=== PATIENT | male | born 1970 | race Caucasian/White ===

== ENCOUNTER 2018-07-25 14:59 | Inpatient (IN) | payer OTHER ==
[2018-07-25 15:24] LABS: ADD MAN DIFF? NO
[2018-07-25] MEDS ORDERED: ONDANSETRON 4 MG INJ (15:25)
[2018-07-25] MEDS: ONDANSETRON 4 MG INJ IV (15:26)
[2018-07-25] MEDS: SOD CHLORIDE 0.9% 1,000 ML IV (15:27)
[2018-07-25 15:30] LABS: BASOPHILS % 0.4 % (0.0-2.0); EOSINOPHILS # 0.1 10^3/ul (0.0-0.5); EOSINOPHILS % 0.7 % (0.0-7.0); HEMOGLOBIN 15.7 g/dl (14.0-18.0); LYMPHOCYTES # 1.8 10^3/ul (0.8-2.9); LYMPHOCYTES % 26.1 % (15.0-51.0); MEAN CORPUSCULAR HEMOGLOBIN 28.9 pg (29.0-33.0); MEAN CORPUSCULAR HGB CONC 34.9 g/dl (32.0-37.0); MEAN CORPUSCULAR VOLUME 82.9 fl (82.0-101.0); MEAN PLATELET VOLUME 9.4 fl (7.4-10.4); MONOCYTE # 0.7 10^3/ul (0.3-0.9); MONOCYTES % 9.8 % (0.0-11.0); NEUTROPHIL # 4.3 10^3/ul (1.6-7.5); NEUTROPHILS % 62.7 % (39.0-77.0); PLATELET COUNT 226 10^3/UL (140-415); RED BLOOD COUNT 5.43 10^6/ul (4.70-6.10); RED CELL DISTRIBUTION WIDTH 12.9 % (11.5-14.5)
[2018-07-25 15:30] LABS: WHITE BLOOD COUNT 6.8 10^3/ul (4.8-10.8)
[2018-07-25 15:48] LABS: ANION GAP 8 (5-13); BLOOD UREA NITROGEN 18 mg/dl (7-20); CALCIUM 7.7 mg/dl (8.4-10.2); CARBON DIOXIDE 22 mmol/L (21-31); CHLORIDE 112 mmol/L (97-110); CREATININE 0.89 mg/dl (0.61-1.24); Estimated GFR > 60 mL/min (>60); GLUCOSE 97 mg/dl (70-220); SODIUM 142 mmol/L (135-144)
[2018-07-25 15:51] LABS: INR 0.99; PROTIME 13.2 Sec (11.9-14.9)
[2018-07-25] MEDS: DIAZEPAM 5 MG/ML SYG IV (15:53)
[2018-07-25 15:55] LABS: POTASSIUM 2.9 mmol/L (3.5-5.1)
[2018-07-25 15:59] LABS: TROPONIN-I < 0.012 ng/ml (0.000-0.120)
[2018-07-25] MEDS ORDERED: ACETAMINOPHEN 325 MG TAB PO ×3 (16:30→23:00)
[2018-07-25] MEDS ORDERED: ONDANSETRON 4 MG INJ IV ×4 (16:30→23:00)
[2018-07-25] MEDS: POTASSIUM CHLORIDE 20 MEQ POWDER FOR ORAL SOLN PO (16:42)
[2018-07-25] MEDS: POTASSIUM CHLORIDE 50 ML IVPB ×2 (16:43→17:53)
[2018-07-25 16:46] LABS: ADD UMIC NO; UR ASCORBIC ACID NEGATIVE (NEGATIVE); UR BILIRUBIN (Dip) NEGATIVE (NEGATIVE); UR BLOOD (Dip) NEGATIVE (NEGATIVE); UR CLARITY CLEAR (CLEAR); UR COLOR YELLOW (YELLOW); UR GLUCOSE (Dip) NEGATIVE (NEGATIVE); UR KETONES (Dip) TRACE mg/dL (NEGATIVE); UR LEUKOCYTE ESTERASE (Dip) NEGATIVE Leu/ul (NEGATIVE); UR NITRITE (Dip) NEGATIVE (NEGATIVE); UR SPECIFIC GRAVITY (Dip) 1.021 (1.003-1.030); UR TOTAL PROTEIN (Dip) NEGATIVE (NEGATIVE); UR UROBILINOGEN (Dip) NEGATIVE (NEGATIVE)
[2018-07-25] MEDS: MECLIZINE 12.5 MG TAB PO (17:53)
[2018-07-25] MEDS: POTASSIUM CHLORIDE (SR) 20 MEQ TAB PO (17:53)
[2018-07-25 20:58] LABS: THYROID STIMULATING HORMONE 0.982 MIU/L (0.465-4.680)
[2018-07-25] MEDS ORDERED: MECLIZINE 25 MG TAB PO (21:00)
[2018-07-25] MEDS ORDERED: NACL 0.9% 3 ML SYG IV (23:00)
[2018-07-25] MEDS ORDERED: BISACODYL (EC) 5 MG TAB PO (23:00)
[2018-07-25] MEDS ORDERED: DOCUSATE SODIUM 100 MG CAP PO (23:00)
[2018-07-26] MEDS: SOD CHLORIDE 0.9% 1,000 ML IV ×2 (00:04→10:20)
[2018-07-26 01:22] LABS: ANION GAP 10 (5-13); BLOOD UREA NITROGEN 17 mg/dl (7-20); CALCIUM 9.1 mg/dl (8.4-10.2); CARBON DIOXIDE 24 mmol/L (21-31); CHLORIDE 105 mmol/L (97-110); Estimated GFR > 60 mL/min (>60); GLUCOSE 119 mg/dl (70-220); POTASSIUM 4.1 mmol/L (3.5-5.1); SODIUM 139 mmol/L (135-144)
[2018-07-26 05:18] LABS: ADD MAN DIFF? NO
[2018-07-26 05:20] LABS: BASOPHILS % 0.2 % (0.0-2.0); EOSINOPHILS % 0.1 % (0.0-7.0); HEMATOCRIT 44.7 % (42.0-52.0); HEMOGLOBIN 15.2 g/dl (14.0-18.0); LYMPHOCYTES # 1.4 10^3/ul (0.8-2.9); LYMPHOCYTES % 15.7 % (15.0-51.0); MEAN CORPUSCULAR HEMOGLOBIN 28.5 pg (29.0-33.0); MEAN CORPUSCULAR VOLUME 83.9 fl (82.0-101.0); MEAN PLATELET VOLUME 9.5 fl (7.4-10.4); MONOCYTE # 0.8 10^3/ul (0.3-0.9); MONOCYTES % 8.5 % (0.0-11.0); NEUTROPHIL # 6.6 10^3/ul (1.6-7.5); NEUTROPHILS % 75.2 % (39.0-77.0); PLATELET COUNT 203 10^3/UL (140-415); RED BLOOD COUNT 5.33 10^6/ul (4.70-6.10)
[2018-07-26 05:20] LABS: WHITE BLOOD COUNT 8.8 10^3/ul (4.8-10.8)
[2018-07-26 05:52] LABS: ALANINE AMINOTRANSFERASE 49 IU/L (13-69); ALBUMIN/GLOBULIN RATIO 1.53; ALKALINE PHOSPHATASE 58 IU/L (42-121); ANION GAP 11 (5-13); ASPARTATE AMINO TRANSFERASE 26 IU/L (15-46); BILIRUBIN,INDIRECT 1.5 mg/dl (0-1.1); BILIRUBIN,TOTAL 1.5 mg/dl (0.2-1.3); BLOOD UREA NITROGEN 15 mg/dl (7-20); CARBON DIOXIDE 24 mmol/L (21-31); CHLORIDE 106 mmol/L (97-110); CHOLESTEROL 199 mg/dl (100-200); CREATININE 0.87 mg/dl (0.61-1.24); Estimated GFR > 60 mL/min (>60); GLUCOSE 90 mg/dl (70-220); HDL CHOLESTEROL 33 mg/dl (28-71); LDL CHOLESTEROL,CALCULATED 154 mg/dl; MAGNESIUM 1.9 mg/dl (1.7-2.5); POTASSIUM 3.8 mmol/L (3.5-5.1); SODIUM 141 mmol/L (135-144); TOTAL PROTEIN 6.6 g/dl (6.1-8.1); TRIGLYCERIDES 60 mg/dl (0-149)
[2018-07-26 06:16] LABS: THYROID STIMULATING HORMONE 0.418 MIU/L (0.465-4.680)
[2018-07-26 07:05] LABS: HEMOGLOBIN A1C 5.1 % (0-5.9)
== END 2018-07-26 17:45 | disposition home or self-care (01) | DRG 149 ==
LOC: E/R 14:59 → PP2 19:13
PROVIDERS: Family Medicine
DX: H81.10 Benign paroxysmal vertigo, unspecified ear (principal); E87.6 Hypokalemia; E66.9 Obesity, unspecified; Z68.31 Body mass index [BMI] 31.0-31.9, adult; Z87.891 Personal history of nicotine dependence
CPT/HCPCS: 36415; 70553; 71045; 80048; 80053; 80061; 81003; 83036; 83735; 84439; 84443; 84484; 85025; 85610; 93005; 96361; 96374; 96375; 99285-25